=== PATIENT | female | born 1970 | race Caucasian/White ===

== ENCOUNTER 2016-10-21 21:48 | Emergency (ER) ==
[2016-10-21 21:58] VITALS: BP 127/87; TEMP 97.8; BMI 39.1
[2016-10-21] MEDS ORDERED: SODIUM CHLORIDE 1,000 ML IV STA (22:03)
[2016-10-21] MEDS ORDERED: ATIVAN IVP STA (22:04)
[2016-10-21 22:17] LABS: BASOPHILS % (AUTO) 0.3 % (0.0-3.0); EOSINOPHILS # (AUTO) 0.3 K/ul (0.0-0.7); EOSINOPHILS % (AUTO) 3.1 % (0.0-7.0); HEMOGLOBIN 13.3 g/dl (12.0-16.0); IMMATURE GRANULOCYTE % (AUTO) 0.3 % (0.0-5.0); LYMPHOCYTES # (AUTO) 2.1 K/uL (0.60-3.4); LYMPHOCYTES % (AUTO) 23.7 (10.0-50.0); MEAN CORPUSCULAR HEMOGLOBIN 30.9 pg (27.0-31.0); MEAN CORPUSCULAR HGB CONC 33.3 (31.8-35.4); MEAN CORPUSCULAR VOLUME 92.8 fl (81.0-99.0); MONOCYTES # (AUTO) 0.5 K/uL (0.4-2.0); MONOCYTES % (AUTO) 6.1 (0-10); NEUTROPHILS # (AUTO) 5.8 K/ul (2.0-6.9); NEUTROPHILS % (AUTO) 66.5; PLATELET COUNT 258 10^3/uL (140-440); RED BLOOD COUNT 4.31 10^6/ul (4.20-5.40); WHITE BLOOD COUNT 8.73 K/ul (4.6-10.2)
[2016-10-21 22:34] LABS: SERUM PREGNANCY INTERNAL QC INTERNAL QC VALID
[2016-10-21 22:45] LABS: ALANINE AMINOTRANSFERASE 47 U/L (12-78); ALBUMIN 3.7 g/dL (3.4-5.0); ALBUMIN/GLOBULIN RATIO 1.06; ALKALINE PHOSPHATASE 70 U/L (42-98); AMYLASE 47 U/L (25-115); ANION GAP 14.1; ASPARTATE AMINO TRANSFERASE 34 U/L (15-37); BILIRUBIN,TOTAL 0.35 mg/dL (0.00-1.20); BLOOD UREA NITROGEN 11 mg/dL (7-18); BUN/CREATININE RATIO 15.27; CALCIUM 8.8 mg/dL (8.2-10.2); CARBON DIOXIDE 24 mmol/L (21-32); CHLORIDE 107 mmol/L (98-107); CREATINE KINASE 58 U/L; CREATININE 0.72 mg/dL (0.60-1.30); GLUCOSE 93 mg/dL (70-110); LIPASE 21 U/L (8-78); POTASSIUM 4.1 mmol/L (3.5-5.10); SODIUM 141 mmol/L (136-145); TOTAL PROTEIN 7.2 g/dL (6.4-8.2)
[2016-10-21 22:46] LABS: ABG BASE EXCESS 1 (-2.0-2.0); ABG HCO3 25.8 (22.0-26.0); ABG PCO2 38.9 mmHg (35-45); ABG PH 7.429 (7.35-7.45); ABG TCO2 27 (22.0-28.0)
[2016-10-21 22:48] LABS: ERYTHROCYTE SEDIMENTATION RATE 20 mm/hr (0-20); ESR INTERNAL QC INTERNAL QC VALID
--- NOTE | 2016-10-21 23:33 | CT ---
Exam: CT angiography of the chest History: Right-sided chest pain Technique: [address] of the chest utilizing CT angiography protocol. Multiplanar and th ree-dimensional reformations were performed. FINDINGS: Technically adequate for evaluation of pulmonary arteries and aorta. There are no pulmon renard artery filling defects. Lung windows show no significant pulmonary parenchymal abnormality. Th e heart, great vessels and pericardium show no acute findings. Atherosclerotic calcification of the aorta without aneurysm. No pathologic lymph node enlargement mediastinum. No acute findings of th e chest wall soft tissues or bony thorax. Single 3 mm nonobstructing calculus in the right kidney. Impression: 1. No evidence of pulmonary artery thrombus. No acute findings of the chest.
--- NOTE | 2016-10-21 23:39 | ED.PDOC ---
General ED Provider: Dr. ROSEMARY EAGLE-ER Chief Complaint: Cough Stated Complaint: i coughed and i felt a pain in my right chest and then i had a panic attack Time Seen by Physician: 21:50 Mode of Arrival: Wheelchair Information Source: Patient Exam Limitations: No limitations Primary Care Provider: BLAS TATE Nursing and Triage Documentation Reviewed and Agree: Yes Respiratory Complaint Exam - Respiratory Complaint/Exam Onset/Duration: this evenin Symptoms Are: Still present Timing: Intermittent Initial Severity: Mild Current Severity: Moderate Location: Chest Character: Reports: Non-productive cough Alleviating: Reports: None Associated Signs and Symptoms: Reports: URI. Denies: Rapid breathing, Dyspnea, Fever, Chills, Chest pain, Pleuritic chest pain, Wheezing, Hemoptysis, Dizziness , Calf pain, Calf swelling, Edema, Nasal congestion, Hoarseness, Sinus discomfort, Vomiting, Sore throat, Weight loss, Decreased oral intake, Increased thirst, Increased appetite, Increased urination Related History: Reports: Similar episode History of Healthcare-Acquired Pneumonia: No Home Oxygen Use: No Recent Stress Test: No Recent Echo/LV Function: No Current Antibiotic Use: No Current Asthma Medication Use: No Respiratory Distress: None Inadequate Respiratory Effort: No Dysphagia Present: No Stridor Present: No JVD Present: No Accessory Muscle Use: No Retractions: Not Present Diminished Breath Sounds: No Sinus Tenderness: None Grunting Respirations: No Kussmaul Respirations: No Differential Diagnoses: Chest Wall Pain, Pneumonia, URI Non-Traumatic Chest Pain Syncope: EKG Performed Review of Systems - Review Of Systems Constitutional: Reports: No symptoms Eyes: Reports: No symptoms Ears, Nose, Mouth, Throat: Reports: No symptoms Respiratory: Reports: Cough Cardiac: Reports: Chest pain (right sided chest wall) GI: Reports: No symptoms : Reports: No symptoms Musculoskeletal: Reports: No symptoms Skin: Reports: No symptoms Neurological: Reports: No symptoms, Anxiety Endocrine: Reports: No symptoms Hematologic/Lymphatic: Reports: No symptoms All Other Systems: Reviewed and Negative Past Medical History - Past Medical History Previously Healthy: Yes Endocrine: Reports: None Cardiovascular: Reports: None Respiratory: Reports: None Hematological: Reports: None Gastrointestinal: Reports: None, Liver (HEP C) Genitourinary: Reports: Kidney stones Neuro/Psych: Reports: Migraine, Anxiety Musculoskeletal: Reports: Back Pain Cancer: Reports: None Last Menstrual Period: menopausal 1 year ago - Surgical History General Surgical History: Reports: Tubal ligation - Family History Family History: Reports: Unknown - Social History Smoking Status: Current every day smoker Hx Substance Use: Yes (marijuana) Alcohol Screening: Occasionally Lives: With family - Immunizations Tetanus Shot up to Date: No Physical Exam - Physical Exam Appearance: Well-appearing, No pain distress, Well-nourished Pain Distress: Mild Eyes: JIMMY, EOMI, Conjunctiva clear ENT: Ears normal, Nose normal, Oropharynx normal Neck: Supple Respiratory: Airway patent Cardiovascular: RRR GI/: Soft Musculoskeletal: Normal strength, ROM intact, No edema, No calf tenderness Skin: Warm Neurological: Sensation intact, Motor intact, Reflexes intact, Cranial nerves intact, Alert, Oriented Psychiatric: Affect appropriate, Mood appropriate Interpretation - Radiology Interpretation Radiology Interpretation By: Radiologist Radiology Results: Negative Exam Interpreted: CT Scan - EKG Interpretation Time of EKG #1: 23:39 Rate: Normal Rhythm: Sinus Ectopy: None [place]: NL ST Segment: Normal Interpretation: nsr Re-Evaluation - Re-Evaluation Time of Re-Evaluation: 23:51 Status: Improved (resting comfortably without difficulty) Vital Signs Stable: Yes Pain Level: 0 Appearance: NAD Lungs: Clear Skin: Warm and Dry Neuro: Alert and Oriented X3 CV: RRR Critical Care Note - Critical Care Note Total Time (mins): 0 Course - Course Hematology/Chemistry: 10/21/16 22:15 10/21/16 22:15 Orders, Labs, Meds: Lab Review 10/21/16 10/21/16 10/21/16 22:02 22:15 23:25 WBC 8.73 RBC 4.31 Hgb 13.3 Hct 40.0 MCV 92.8 MCH 30.9 MCHC 33.3 RDW Coeff of Liss 12.5 Plt Count 258 Immature Gran % (Auto) 0.3 Neut % (Auto) 66.5 Lymph % (Auto) 23.7 Swisher % (Auto) 6.1 Eos % (Auto) 3.1 Baso % (Auto) 0.3 Immature Gran # (Auto) 0.0 Neut # 5.8 Lymph # 2.1 Swisher # 0.5 Eos # 0.3 Baso # 0.0 ESR 20 Puncture Site Lb O2 Saturation 94.0 L ABG pH 7.429 ABG pCO2 38.9 ABG pO2 71.0 L ABG HCO3 25.8 ABG Total CO2 27 ABG Base Excess 1 Tommy Test + FiO2 % 21.0 Sodium 141 Potassium 4.1 Chloride 107 Carbon Dioxide 24 Anion Gap 14.1 BUN 11 Creatinine 0.72 Estimated GFR (MDRD) 86.00 BUN/Creatinine Ratio 15.27 Glucose 93 Calcium 8.8 Total Bilirubin 0.35 AST 34 ALT 47 Alkaline Phosphatase 70 Total Creatine Kinase 58 Troponin I < 0.0100 Total Protein 7.2 Albumin 3.7 Globulin 3.5 Albumin/Globulin Ratio 1.06 Amylase 47 Lipase 21 Serum , Qual Negative Influenza A (Rapid) Negative Influenza B (Rapid) Negative Orders Category Date Time Status ABG DRAW REQUEST Stat CARDIO 10/21/16 22:03 Completed EKG-(ED ONLY) Stat CARDIO 10/21/16 22:03 Completed NPO REMINDER: IMAGING ONCE CARE 10/21/16 22:04 Completed ED IV/MEDIPORT/POWERPORT .ONCE EMERGENCY 10/21/16 22:03 Active ABG Stat LAB 10/21/16 22:02 Completed AMYLASE Stat LAB 10/21/16 22:15 Completed CBC W/ AUTO DIFF Stat LAB 10/21/16 22:15 Completed COMPREHENSIVE METABOLIC PANEL Stat LAB 10/21/16 22:15 Completed CREATINE KINASE Stat LAB 10/21/16 22:15 Completed ESR Stat LAB 10/21/16 22:15 Completed LIPASE Stat LAB 10/21/16 22:15 Completed MOLECULAR GROUP A STREP Stat LAB 10/21/16 23:25 Results RAPID FLU A/B Stat LAB 10/21/16 23:25 Completed SERUM Stat LAB 10/21/16 22:15 Completed STREP SCREEN Stat LAB 10/21/16 23:25 Results TROPONIN I Stat LAB 10/21/16 22:15 Completed 0.9 % Sodium Chloride [Saline Flush] MEDS 10/21/16 22:03 Ordered 1 syr IVF PRN PRN Lorazepam Inj [Ativan] MEDS 10/21/16 22:04 Discontinued 1 mg IVP ONCE STA Sodium Chloride 0.9% [Sodium Chloride] 1,000 ml MEDS 10/21/16 22:03 Active IV 100 mls/hr CT CHEST PE PROTOCOL Stat RADS 10/21/16 22:04 Completed Medications Generic Name Dose Route Start Last Admin Trade Name Freq PRN Reason Stop Dose Admin Sodium Chloride 1,000 mls @ 100 mls/hr 10/21/16 22:03 10/21/16 23:02 Sodium Chloride IV 10/22/16 08:02 100 mls/hr .Q10H STA Administration Sodium Chloride 1 syr 10/21/16 22:03 Saline Flush IVF PRN PRN To flush IV Discontinued Medications Generic Name Dose Route Start Last Admin Trade Name Freq PRN Reason Stop Dose Admin Lorazepam 1 mg 10/21/16 22:04 10/21/16 23:02 Ativan IVP 10/21/16 22:05 1 mg ONCE STA Administration Vital Signs: Temp Pulse Resp BP Pulse Ox 10/21/16 21:49 97.8 F 88 20 127/87 98 Departure - Departure Time of Disposition: 23:51 Disposition: HOME SELF-CARE Discharge Problem: Anxiety Instructions: Anxiety (ED) Condition: Good Pt referred to PMD for follow-up: Yes Additional Instructions: f/u with pcp Allergies/Adverse Reactions: Allergies azithromycin [From Zithromax] Allergy (Intermediate, Verified 10/21/16 21:58) rash, skin peeled off hands and red skin cefaclor [From Ceclor] Adverse Reaction (Verified 10/21/16 21:58) Home Medications: Ambulatory Orders Ibuprofen [Motrin] 600 mg PO QID PRN #30 tablet 07/05/16 Disposition Discussed With: Patient
[2016-10-21 23:49] LABS: FLU INTERNAL QC INTERNAL QC VALID; RAPID FLU A NEGATIVE (NEGATIVE); RAPID FLU B NEGATIVE (NEGATIVE)
== END 2016-10-21 23:54 | disposition home or self-care (01) ==
LOC: ED 21:48
DX: F41.9 Anxiety disorder, unspecified (principal); F17.210 Nicotine dependence, cigarettes, uncomplicated
CPT/HCPCS: 36415; 80053; 82150; 82550; 82803; 83690; 84484; 84703; 85025; 85651; 87651; 87804; 87880; 93005; 93010; 96361; 96374; 99284